=== PATIENT | female | born 1960 | race Two or more races ===

== ENCOUNTER 2017-12-12 08:06 | Outpatient (CLI) | payer OTHER | END 2017-12-12 08:27 | disposition home or self-care (01) | LOC: SONOGRAMA 08:06 | DX: M25.511 Pain in right shoulder (principal) ==

== ENCOUNTER 2019-11-24 10:40 | Outpatient (CLI) | payer OTHER | END 2019-11-24 11:04 | disposition home or self-care (01) | LOC: RAD 10:40 | PROVIDERS: ATTEND Orthopaedic Surgery Sports Medicine | DX: M19.011 Primary osteoarthritis, right shoulder (principal) ==

== ENCOUNTER 2020-07-31 13:15 | Outpatient (CLI) | payer OTHER | END 2020-07-31 13:24 | disposition home or self-care (01) | LOC: RAD 13:15 → MAMO-SONO 13:15 → RAD 13:24 | PROVIDERS: ATTEND Urology | DX: N28.89 Other specified disorders of kidney and ureter (principal); N39.8 Other specified disorders of urinary system ==